=== PATIENT | female | born 1985 | race Two or more races ===

== ENCOUNTER 2021-07-02 06:30 | Inpatient (IN) | payer OTHER ==
[2021-07-02] MEDS ORDERED: KETOROLAC TROMETHAMINE 30 MG/1 ML VIAL ONE (07:51)
[2021-07-02] MEDS ORDERED: morphine SULFATE/PF 1 MG/2 ML (2cc Syringe - QUVA) ONE (07:51)
[2021-07-02] MEDS ORDERED: ceFAZolin SODIUM 1 GM VIAL ONE (07:51)
[2021-07-02] MEDS ORDERED: SODIUM CHLORIDE 0.9% P/F 10 ML VIAL IJ ONE ×2 (07:51→07:55)
[2021-07-02] MEDS ORDERED: PHENYLEPHRINE HCL 10 MG/1 ML SINGLE DOSE VIAL ONE (07:51)
[2021-07-02] MEDS ORDERED: ONDANSETRON 4 MG/2 ML VIAL ONE (07:51)
[2021-07-02] MEDS ORDERED: ePHEDrine SULFATE 50 MG/1 ML AMPULE ONE (07:52)
[2021-07-02] MEDS ORDERED: PROPOFOL 20 ML ONE (07:53)
[2021-07-02] MEDS ORDERED: SUCCINYLCHOLINE CHLORIDE 200 MG/10 ML SYRINGE ONE (07:53)
[2021-07-02] MEDS ORDERED: CITRIC ACID/SODIUM CITRATE 30 ML UNIT-DOSE CUP PO ONE (08:05)
[2021-07-02] MEDS ORDERED: ELECTROLYTE-148 SOLN 500 ML IV ONE (08:05)
[2021-07-02] MEDS ORDERED: OXYTOCIN 10 UNITS/ML VIAL ONE (08:15)
[2021-07-02] MEDS ORDERED: ELECTROLYTE-148 SOLN 1,000 ML IV SCH (08:35)
[2021-07-02] MEDS ORDERED: ACETAMINOPHEN 325 MG TABLET (FP) PO PRN (09:02)
[2021-07-02] MEDS ORDERED: IBUPROFEN 800 MG/8 ML IJ IVPB PRN (09:02)
[2021-07-02] MEDS ORDERED: ONDANSETRON 4 MG/2 ML VIAL IVPUSH PRN ×2 (09:13)
[2021-07-02] MEDS ORDERED: ACETAMINOPHEN 1000 MG/100 ML BAG IVPB PRN (09:14)
[2021-07-02] MEDS ORDERED: LACTATED RINGERS SOLUTION 1,000 ML IV SCH (09:15)
[2021-07-02 10:47] VITALS: BMI 24.4
[2021-07-02] MEDS ORDERED: ACETAMINOPHEN INJECTION 100 ML IVPB ONE (10:52)
[2021-07-02] MEDS: OXYTOCIN 20 UNITS in 0.9% NS 20 UNIT/1,000 ML INFUS.BAG IV SCH ×2 (14:00→22:00)
[2021-07-02] MEDS ORDERED: oxyCODONE HCL 5 MG TABLET PO PRN (21:02)
[2021-07-03] MEDS: SIMETHICONE 80 MG TAB.CHEW (FP) PO PRN ×2 (00:32→20:13)
[2021-07-03 08:07] LABS: BASO % 0.3 % (0-2.0); EOS % 0.5 % (0-4.5); HEMATOCRIT 26.5 % (32.4-45.2); HEMOGLOBIN 8.9 GM/dL (10.7-15.3); LYMPH % 19.6 % (8-40); MCH 30.4 pg (25.7-33.7); MCHC 33.6 g/dl (32.0-36.0); MEAN CELL VOLUME 90.3 fl (80-96); MEAN PLT VOLUME 8.9 fl (7.5-11.1); MONO % 10.1 % (3.8-10.2); NEUT % 69.5 % (42.8-82.8); PLATELET COUNT 161 10^3/uL (134-434); RBC 2.93 M/mm3 (3.60-5.2); WHITE BLOOD COUNT 9.5 K/mm3 (4.0-10.0)
[2021-07-03] MEDS: IBUPROFEN 600 MG TABLET (FP) PO PRN ×2 (08:20→20:13)
[2021-07-03] MEDS ORDERED: BISACODYL 10 MG SUPP.RECT RC PRN (09:02)
[2021-07-04] MEDS: IBUPROFEN 600 MG TABLET (FP) PO PRN ×2 (08:26→20:22)
[2021-07-04] MEDS: SIMETHICONE 80 MG TAB.CHEW (FP) PO PRN (20:22)
[2021-07-05 07:52] LABS: BASO % 0.3 % (0-2.0); EOS % 1.2 % (0-4.5); HEMATOCRIT 30.3 % (32.4-45.2); HEMOGLOBIN 10.1 GM/dL (10.7-15.3); LYMPH % 25.6 % (8-40); MCH 30.2 pg (25.7-33.7); MCHC 33.2 g/dl (32.0-36.0); MEAN CELL VOLUME 90.9 fl (80-96); MEAN PLT VOLUME 8.5 fl (7.5-11.1); MONO % 7.5 % (3.8-10.2); NEUT % 65.4 % (42.8-82.8); PLATELET COUNT 240 10^3/uL (134-434); RBC 3.34 M/mm3 (3.60-5.2); RDW 13.8 % (11.6-15.6); WHITE BLOOD COUNT 9.1 K/mm3 (4.0-10.0)
[2021-07-05 08:13] VITALS: BP 114/68; PULSE 84; TEMP 98.1
== END 2021-07-05 13:35 | disposition home or self-care (01) | DRG 540 ==
LOC: JLDR 06:30 → J3W 11:20
PROVIDERS: ADMIT Student in an Organized Health Care Education/Training Program; ATTEND Student in an Organized Health Care Education/Training Program
PROC: 10D00Z1 Extraction of Products of Conception, Low, Open Approach (ICD-10-PCS; principal; 2021-07-02)
PROC: 0UT70ZZ Resection of Bilateral Fallopian Tubes, Open Approach (ICD-10-PCS; 2021-07-02)
PROC: 0UT20ZZ Resection of Bilateral Ovaries, Open Approach (ICD-10-PCS; 2021-07-02)
DX: O34.211 Maternal care for low transverse scar from previous cesarean delivery (principal); O69.81X0 Labor and delivery complicated by cord around neck, without compression, not applicable or unspecified; Z3A.39 39 weeks gestation of pregnancy; Z37.0 Single live birth; Z30.2 Encounter for sterilization
CPT/HCPCS: 36415; 80053; 81003; 85025; 85610; 86780; 86850; 86900; 86901; 88302-TC; 88307-TC; C9803; U0003; U0005

== ENCOUNTER 2024-02-08 16:15 | Emergency (ER) | payer OTHER ==
[2024-02-08 16:52] VITALS: BP 99/63; PULSE 75; RESP 15; TEMP 98.6; BMI 20.5
[2024-02-08] MEDS ORDERED: diphenhydrAMINE HCL 25 MG CAPSULE (FP) PO ONE (17:23)
[2024-02-08] MEDS: diphenhydrAMINE HCL 50 MG CAPSULE PO ONE (17:25)
[2024-02-08 18:53] LABS: HIV INTERPRETATION NEGATIVE (NEGATIVE)
== END 2024-02-08 18:35 | disposition home or self-care (01) ==
LOC: JERFT 16:15
DX: R21 Rash and other nonspecific skin eruption (principal); J30.89 Other allergic rhinitis
CPT/HCPCS: 36415; 86803; 87389; 99283-25